=== PATIENT | female | born 1950 | race Caucasian/White ===

== ENCOUNTER 2021-01-14 16:47 | Inpatient (IN) ==
[2021-01-14 17:36] LABS: Basophils % 0.2 % (0.0-0.8); Eosinophils % 0.2 % (0.00-10.9); Hematocrit 37.2 VOL% (35.7-47.0); Hemoglobin 12.2 GM/DL (12.0-16.0); Immature Granulocytes % 0.4 %; Immature Granulocytes Absolute 0.04 #; Lymphocytes # 1.8 10*3/uL (1.4-4.0); Lymphocytes % 19.4 % (21.3-54.2); Mean Corpuscular HGB Conc 32.8 GM/DL (32-36); Mean Corpuscular Volume 94.7 FL (87-102); Mean Platelet Volume 9.8 FL (9.6-12.0); Neutrophils % 69.8 % (38.7-73.9); Platelet Count 210 T/CUMM (130-400); Red Blood Count 3.93 MC/CUMM (3.8-5.5); Red Cell Distribution Width 13.5 % (9.3-17.3); White Blood Count 9.3 T/CUMM (4-12)
[2021-01-14 17:46] LABS: Albumin 3.2 G/DL (3.4-5.0); Bilirubin,Total 0.7 MG/DL (0.2-1.0); Calcium 8.5 MG/DL (8.5-10.1); Osmolality,Calculated 272.8 MOS/KG (273-304); Potassium 3.7 MMOL/L (3.5-5.1); Total Protein 6.8 G/DL (5.0-7.5)
[2021-01-14] MEDS ORDERED: cefTRIAXone 1,000 MG in SODIUM CHLORIDE 0.9% 100 ML IV STA (17:56)
[2021-01-14] MEDS ORDERED: AZITHROMYCIN INJ 500 MG in SODIUM CHLORIDE 0.9% 250 ML IV STA (17:56)
[2021-01-14] MEDS ORDERED: ONDANSETRON 4 MG/2 ML VIAL IV PRN (19:02)
[2021-01-14] MEDS ORDERED: ENOXAPARIN 30 MG/0.3 ML SYRINGE SUBCUT STA (20:38)
[2021-01-15 05:30] LABS: Basophils % 0.4 % (0.0-0.8); Eosinophils % 0.5 % (0.00-10.9); Hematocrit 34.8 VOL% (35.7-47.0); Hemoglobin 11.3 GM/DL (12.0-16.0); Immature Granulocytes % 0.5 %; Immature Granulocytes Absolute 0.04 #; Lymphocytes # 1.9 10*3/uL (1.4-4.0); Lymphocytes % 25.4 % (21.3-54.2); Mean Corpuscular HGB Conc 32.5 GM/DL (32-36); Mean Corpuscular Volume 97.2 FL (87-102); Mean Platelet Volume 9.9 FL (9.6-12.0); Monocytes % 8.7 % (1.7-12.7); Neutrophils % 64.5 % (38.7-73.9); Platelet Count 212 T/CUMM (130-400); Red Blood Count 3.58 MC/CUMM (3.8-5.5); Red Cell Distribution Width 13.4 % (9.3-17.3); White Blood Count 7.4 T/CUMM (4-12)
[2021-01-15 05:43] LABS: Albumin 2.8 G/DL (3.4-5.0); Bilirubin,Total 0.6 MG/DL (0.2-1.0); Calcium 8.4 MG/DL (8.5-10.1); Osmolality,Calculated 278.4 MOS/KG (273-304); Potassium 3.6 MMOL/L (3.5-5.1); Total Protein 6.9 G/DL (5.0-7.5)
[2021-01-15] MEDS: POLYETHYLENE GLYCOL POWDER 17 GM PACK PO SCH ×2 (09:07→20:19)
[2021-01-15] MEDS: ENOXAPARIN 100 MG/ML SYRINGE SUBCUT SCH ×2 (09:08→20:18)
[2021-01-15] MEDS: cefTRIAXone 1,000 MG in SODIUM CHLORIDE 0.9% 100 ML IV SCH ×2 (09:08→20:25)
[2021-01-15] MEDS: PANTOPRAZOLE 40 MG TABLET PO SCH (09:08)
[2021-01-15] MEDS: CYCLOBENZAPRINE 10 MG TABLET PO PRN ×2 (11:02→20:19)
[2021-01-15] MEDS: DEXTROMETHORPHAN ER 6 MG/ML 90 ML/BOTTLE PO PRN (11:03)
[2021-01-15] MEDS: AZITHROMYCIN INJ 500 MG in SODIUM CHLORIDE 0.9% 250 ML IV SCH (12:55)
[2021-01-15] MEDS: BUDESONIDE 0.5 MG/2 ML NEB RESP TX SCH ×2 (13:13→19:54)
[2021-01-15] MEDS: ALBUTEROL/IPRATROPIUM 3 ML NEB RESP TX SCH ×2 (13:13→19:54)
[2021-01-15] MEDS: ACETAMINOPHEN 325 MG TABLET PO PRN (20:19)
[2021-01-16] MEDS: ALBUTEROL/IPRATROPIUM 3 ML NEB RESP TX SCH ×4 (01:14→19:45)
[2021-01-16] MEDS: ACETYLCYSTEINE 20% 800 MG/4 ML VIAL RESP TX SCH ×4 (01:15→19:45)
[2021-01-16] MEDS: CYCLOBENZAPRINE 10 MG TABLET PO PRN (05:14)
[2021-01-16] MEDS: BUDESONIDE 0.5 MG/2 ML NEB RESP TX SCH ×2 (07:30→19:45)
[2021-01-16] MEDS ORDERED: HYOSCYAMINE 0.125 MG TABLET PO PRN (08:05)
[2021-01-16] MEDS ORDERED: DENOSUMAB 60 MG/ML SYRINGE SUBCUT SCH (08:30)
[2021-01-16] MEDS: CHOLECALCIFEROL 1,000 UNIT TABLET PO SCH (10:01)
[2021-01-16] MEDS: PANTOPRAZOLE 40 MG TABLET PO SCH ×3 (10:01→20:10)
[2021-01-16] MEDS: ENOXAPARIN 100 MG/ML SYRINGE SUBCUT SCH (10:02)
[2021-01-16] MEDS: POLYETHYLENE GLYCOL POWDER 17 GM PACK PO SCH ×2 (10:02→20:10)
[2021-01-16] MEDS: ACETAMINOPHEN 325 MG TABLET PO PRN (10:02)
[2021-01-16] MEDS: BENZONATATE 100 MG CAPSULE PO SCH ×3 (10:08→20:09)
[2021-01-16] MEDS: ENOXAPARIN 40 MG/0.4 ML SYRINGE SUBCUT SCH ×2 (10:08→20:10)
[2021-01-16] MEDS: MONTELUKAST 10 MG TABLET PO SCH (10:09)
[2021-01-16] MEDS: METHOCARBAMOL 750 MG TABLET PO SCH ×2 (10:09→16:30)
[2021-01-16] MEDS: DEXTROMETHORPHAN ER 6 MG/ML 90 ML/BOTTLE PO PRN (10:14)
[2021-01-16] MEDS: cefTRIAXone 1,000 MG in SODIUM CHLORIDE 0.9% 100 ML IV SCH ×2 (10:39→20:17)
[2021-01-16] MEDS: methylPREDNISolone SOD SUC 40 MG/1 ML VIAL IV SCH ×2 (10:42→16:17)
[2021-01-16] MEDS: AZITHROMYCIN INJ 500 MG in SODIUM CHLORIDE 0.9% 250 ML IV SCH (13:05)
[2021-01-16] MEDS: traMADol 50 MG TABLET PO SCH ×2 (16:16→20:10)
[2021-01-16] MEDS: FAMOTIDINE 20 MG TABLET PO SCH (20:09)
[2021-01-17] MEDS: ALBUTEROL/IPRATROPIUM 3 ML NEB RESP TX SCH ×4 (00:25→19:33)
[2021-01-17] MEDS: methylPREDNISolone SOD SUC 40 MG/1 ML VIAL IV SCH ×3 (00:48→17:47)
[2021-01-17] MEDS: METHOCARBAMOL 750 MG TABLET PO SCH ×3 (00:50→17:47)
[2021-01-17] MEDS: DEXTROMETHORPHAN ER 6 MG/ML 90 ML/BOTTLE PO PRN ×2 (05:11→14:12)
[2021-01-17 06:30] LABS: Basophils % 0.1 % (0.0-0.8); Hemoglobin 12.4 GM/DL (12.0-16.0); Immature Granulocytes % 1.2 %; Immature Granulocytes Absolute 0.17 #; Lymphocytes # 1.2 10*3/uL (1.4-4.0); Lymphocytes % 8.1 % (21.3-54.2); Mean Corpuscular HGB Conc 32.6 GM/DL (32-36); Mean Corpuscular Volume 95.5 FL (87-102); Monocytes % 2.5 % (1.7-12.7); Neutrophils % 88.1 % (38.7-73.9); Platelet Count 300 T/CUMM (130-400); Red Blood Count 3.98 MC/CUMM (3.8-5.5); Red Cell Distribution Width 13.2 % (9.3-17.3); White Blood Count 14.5 T/CUMM (4-12)
[2021-01-17 06:54] LABS: Bilirubin,Total 0.7 MG/DL (0.2-1.0); Calcium 9.6 MG/DL (8.5-10.1); Osmolality,Calculated 279.5 MOS/KG (273-304); Potassium 3.8 MMOL/L (3.5-5.1); Total Protein 8.4 G/DL (5.0-7.5)
[2021-01-17] MEDS: ACETYLCYSTEINE 20% 800 MG/4 ML VIAL RESP TX SCH ×3 (07:33→19:33)
[2021-01-17] MEDS: BUDESONIDE 0.5 MG/2 ML NEB RESP TX SCH ×2 (07:33→19:33)
[2021-01-17] MEDS ORDERED: LACTATED RINGERS 1,000 ML IV SCH (08:00)
[2021-01-17 10:18] LABS: Hepatitis B Core IgM Quant 0.07 Index; Hepatitis B Surface Ag Quant < 0.10 Index; Hepatitis B Surface Ag Result Non-Reactive (NonReactive); Hepatitis C Virus Ab Quant 0.11 Index; Hepatitis C Virus Ab Result Non-Reactive (NonReactive)
[2021-01-17] MEDS ORDERED: propofoL 200 MG/20 ML VIAL IV ONE (12:56)
[2021-01-17] MEDS ORDERED: LIDOCAINE 2% 5 ML VIAL ONE (12:56)
[2021-01-17] MEDS: traMADol 50 MG TABLET PO SCH ×3 (13:21→21:40)
[2021-01-17] MEDS: BENZONATATE 100 MG CAPSULE PO SCH ×3 (13:22→21:40)
[2021-01-17] MEDS: PANTOPRAZOLE 40 MG TABLET PO SCH ×2 (13:23→21:41)
[2021-01-17] MEDS: ENOXAPARIN 40 MG/0.4 ML SYRINGE SUBCUT SCH ×2 (13:30→21:41)
[2021-01-17] MEDS: POLYETHYLENE GLYCOL POWDER 17 GM PACK PO SCH ×2 (13:30→21:40)
[2021-01-17] MEDS: CHOLECALCIFEROL 1,000 UNIT TABLET PO SCH (14:05)
[2021-01-17] MEDS: MONTELUKAST 10 MG TABLET PO SCH (14:05)
[2021-01-17] MEDS: cefTRIAXone 1,000 MG in SODIUM CHLORIDE 0.9% 100 ML IV SCH ×2 (14:06→21:50)
[2021-01-17] MEDS: AZITHROMYCIN INJ 500 MG in SODIUM CHLORIDE 0.9% 250 ML IV SCH (14:07)
[2021-01-17] MEDS: FAMOTIDINE 20 MG TABLET PO SCH (21:41)
[2021-01-18] MEDS: ALBUTEROL/IPRATROPIUM 3 ML NEB RESP TX SCH ×4 (01:00→20:29)
[2021-01-18] MEDS: METHOCARBAMOL 750 MG TABLET PO SCH ×3 (01:11→16:53)
[2021-01-18] MEDS: methylPREDNISolone SOD SUC 40 MG/1 ML VIAL IV SCH ×3 (01:11→16:52)
[2021-01-18 04:11] LABS: Basophils % 0.1 % (0.0-0.8); Hemoglobin 10.5 GM/DL (12.0-16.0); Immature Granulocytes % 1.4 %; Immature Granulocytes Absolute 0.19 #; Lymphocytes # 0.9 10*3/uL (1.4-4.0); Lymphocytes % 6.5 % (21.3-54.2); Mean Corpuscular HGB Conc 32.8 GM/DL (32-36); Mean Corpuscular Volume 95.8 FL (87-102); Mean Platelet Volume 9.8 FL (9.6-12.0); Monocytes % 2.7 % (1.7-12.7); Neutrophils % 89.3 % (38.7-73.9); Platelet Count 271 T/CUMM (130-400); Red Blood Count 3.34 MC/CUMM (3.8-5.5); Red Cell Distribution Width 13.3 % (9.3-17.3); White Blood Count 13.5 T/CUMM (4-12)
[2021-01-18 04:38] LABS: Albumin 2.5 G/DL (3.4-5.0); Bilirubin,Total 0.4 MG/DL (0.2-1.0); Calcium 8.4 MG/DL (8.5-10.1); Osmolality,Calculated 284.3 MOS/KG (273-304); Potassium 4.3 MMOL/L (3.5-5.1); Total Protein 6.7 G/DL (5.0-7.5)
[2021-01-18] MEDS: ACETYLCYSTEINE 20% 800 MG/4 ML VIAL RESP TX SCH ×2 (07:40→14:10)
[2021-01-18] MEDS: BUDESONIDE 0.5 MG/2 ML NEB RESP TX SCH ×2 (07:40→20:29)
[2021-01-18] MEDS: CHOLECALCIFEROL 1,000 UNIT TABLET PO SCH (08:30)
[2021-01-18] MEDS: traMADol 50 MG TABLET PO SCH ×3 (08:31→20:27)
[2021-01-18] MEDS: PANTOPRAZOLE 40 MG TABLET PO SCH ×2 (08:31→20:25)
[2021-01-18] MEDS: BENZONATATE 100 MG CAPSULE PO SCH ×3 (08:31→20:25)
[2021-01-18] MEDS: POLYETHYLENE GLYCOL POWDER 17 GM PACK PO SCH ×2 (08:31→20:27)
[2021-01-18] MEDS: MONTELUKAST 10 MG TABLET PO SCH (08:31)
[2021-01-18] MEDS: cefTRIAXone 1,000 MG in SODIUM CHLORIDE 0.9% 100 ML IV SCH ×2 (08:32→20:28)
[2021-01-18] MEDS: ENOXAPARIN 40 MG/0.4 ML SYRINGE SUBCUT SCH ×2 (08:33→20:28)
[2021-01-18] MEDS: AZITHROMYCIN INJ 500 MG in SODIUM CHLORIDE 0.9% 250 ML IV SCH (12:27)
[2021-01-18] MEDS: FAMOTIDINE 20 MG TABLET PO SCH (20:25)
[2021-01-19] MEDS: ALBUTEROL/IPRATROPIUM 3 ML NEB RESP TX SCH ×3 (00:27→13:57)
[2021-01-19] MEDS: ACETYLCYSTEINE 20% 800 MG/4 ML VIAL RESP TX SCH ×2 (00:27→07:23)
[2021-01-19] MEDS: methylPREDNISolone SOD SUC 40 MG/1 ML VIAL IV SCH ×2 (06:35→14:19)
[2021-01-19] MEDS: METHOCARBAMOL 750 MG TABLET PO SCH ×2 (06:45→14:19)
[2021-01-19] MEDS: BUDESONIDE 0.5 MG/2 ML NEB RESP TX SCH (07:23)
[2021-01-19] MEDS: BENZONATATE 100 MG CAPSULE PO SCH (08:42)
[2021-01-19] MEDS: traMADol 50 MG TABLET PO SCH (08:42)
[2021-01-19] MEDS: PANTOPRAZOLE 40 MG TABLET PO SCH (08:43)
[2021-01-19] MEDS: ENOXAPARIN 40 MG/0.4 ML SYRINGE SUBCUT SCH (08:43)
[2021-01-19] MEDS: CHOLECALCIFEROL 1,000 UNIT TABLET PO SCH (08:43)
[2021-01-19] MEDS: MONTELUKAST 10 MG TABLET PO SCH (08:43)
[2021-01-19] MEDS: cefTRIAXone 1,000 MG in SODIUM CHLORIDE 0.9% 100 ML IV SCH (08:44)
[2021-01-19] MEDS: POLYETHYLENE GLYCOL POWDER 17 GM PACK PO SCH (08:44)
[2021-01-19 11:55] VITALS: BP 176/87
== END 2021-01-19 14:19 | disposition home or self-care (01) | DRG 178 ==
LOC: N.EDINP 16:47 → N.ED 16:47 → N.5E 21:52
PROVIDERS: ADMIT Family Medicine; ATTEND Family Medicine